=== PATIENT | male | born 1965 | race Hispanic/Latino ===

== ENCOUNTER 2022-07-26 12:30 | Outpatient (CLI) | payer BC | END 2022-07-26 12:31 | disposition home or self-care (01) | LOC: PET 12:30 | PROVIDERS: ATTEND Internal Medicine Hematology & Oncology | DX: C34.81 Malignant neoplasm of overlapping sites of right bronchus and lung (principal) | CPT/HCPCS: 78815; A9552 ==

== ENCOUNTER 2022-07-30 11:09 | Outpatient (CLI) | payer BC | END 2022-07-30 11:10 | disposition home or self-care (01) | LOC: SCSMRI 11:09 | PROVIDERS: ATTEND Internal Medicine Hematology & Oncology | DX: C34.90 Malignant neoplasm of unspecified part of unspecified bronchus or lung (principal) | CPT/HCPCS: 70553 ==

== ENCOUNTER 2022-07-31 10:47 | Day surgery (SDC) | payer BC ==
[2022-07-30 09:26] VITALS: BMI 31.0
[2022-07-31] MEDS ORDERED: Bupivacaine HCl 0.5%/Epinephrine 1:200,000/PF 30 ml Vial ONE (10:59)
[2022-07-31] MEDS ORDERED: CEFAZOLIN 2 GM VIAL ONE (11:22)
[2022-07-31] MEDS ORDERED: Sodium Chloride 0.9% 100 ML ONE (11:22)
[2022-07-31] MEDS ORDERED: Fentanyl 250 MCG/5 ML VIAL ONE (11:30)
[2022-07-31] MEDS ORDERED: PROPOFOL 200 MG/20 ML VIAL ONE (11:46)
[2022-07-31] MEDS ORDERED: Lidocaine 1% PF 5 ML VIAL ONE (11:46)
== END 2022-07-31 13:20 | disposition home or self-care (01) ==
LOC: SDC 10:47
PROVIDERS: ATTEND Thoracic Surgery (Cardiothoracic Vascular Surgery)
PROC: 0JH60WZ Insertion of Totally Implantable Vascular Access Device into Chest Subcutaneous Tissue and Fascia, Open Approach (ICD-10-PCS; principal; 2022-07-31)
DX: C34.90 Malignant neoplasm of unspecified part of unspecified bronchus or lung (principal); J98.59 Other diseases of mediastinum, not elsewhere classified; I10 Essential (primary) hypertension; E78.5 Hyperlipidemia, unspecified; F17.210 Nicotine dependence, cigarettes, uncomplicated; Z79.899 Other long term (current) drug therapy
CPT/HCPCS: 71045; C1788; J1642; J2704; J3010; J3490

== ENCOUNTER 2022-10-31 08:45 | Outpatient (CLI) | payer BC | END 2022-10-31 08:46 | disposition home or self-care (01) | LOC: PET 08:45 | PROVIDERS: ATTEND Internal Medicine Hematology & Oncology | DX: C34.81 Malignant neoplasm of overlapping sites of right bronchus and lung (principal) | CPT/HCPCS: 78815; A9552 ==

== ENCOUNTER 2022-11-02 09:28 | Outpatient (CLI) | payer BC | END 2022-11-02 09:29 | disposition home or self-care (01) | LOC: SCSMRI 09:28 | PROVIDERS: ATTEND Radiology Radiation Oncology | DX: C34.90 Malignant neoplasm of unspecified part of unspecified bronchus or lung (principal) | CPT/HCPCS: 70553 ==